=== PATIENT | male | born 1955 | race Hispanic/Latino ===

== ENCOUNTER → 2025-01-06 | Outpatient (CLI) | payer OTHER, MEDICARE ==
[~2025-01-06] MED LIST: APIX5TAB PO; LISI10TA24 PO; METH-1037 PO; METO50TA9 PO; PANT40TA PO; TORS20TA4 PO
--- NOTE | 2025-01-06 23:13 | HMCIMG ---
CHEST 2VWS HISTORY: Congestion COMPARISON: 06/08/2021 FINDINGS: Frontal and lateral projections of the chest were obtained. There are prominent interstitial markings with possible superimposed infiltrates. The heart is borderline enlarged. Prominent interstitial markings are seen. Degenerative changes are seen of the thoracolumbar spine. IMPRESSION: 1. There are prominent interstitial markings.
== END | disposition home or self-care (01) ==
LOC: RAH 16:23
PROVIDERS: ATTEND Internal Medicine Cardiovascular Disease
DX: J84.89 Other specified interstitial pulmonary diseases (principal); I50.42 Chronic combined systolic (congestive) and diastolic (congestive) heart failure; M47.815 Spondylosis without myelopathy or radiculopathy, thoracolumbar region
CPT/HCPCS: 71046